=== PATIENT | female | born 1965 | race Caucasian/White ===

== ENCOUNTER 2019-09-14 06:42 | Day surgery (SDC) | payer BC ==
[2019-09-14] MEDS ORDERED: Dextrose 5%-Lactated Ringers 1,000 ML IV SCH (07:30)
[2019-09-14] MEDS ORDERED: Midazolam 1 MG/ML 2 ML SDV ONE (07:35)
[2019-09-14] MEDS ORDERED: Propofol 200 MG/20 ML SDV ONE (07:35)
[2019-09-14] MEDS ORDERED: fentaNYL 100 MCG/2 ML SDV ONE (07:35)
[2019-09-14] MEDS ORDERED: Glycopyrrolate 0.2 MG/ML 2 ML SDV IVPUSH ONE (08:00)
[2019-09-14] MEDS ORDERED: Pantoprazole 40 MG Vial IVPUSH ONE (08:40)
[2019-09-14 10:17] VITALS: BP 126/72; PULSE 62
--- NOTE | 2019-09-19 14:44 | OR ---
DATE OF PROCEDURE: 09/14/2019 SURGEON: Tirso Whitt MD PREOPERATIVE DIAGNOSIS: Dysphagia referable to the distal esophagus. POSTOPERATIVE DIAGNOSIS: Dysphagia referable to the distal esophagus with: 1. Small hiatal hernia without evidence of stricture. 2. [id number] gastroesophageal reflux disease. 3. Mild antral gastritis. ANESTHESIA: IV sedation. INDICATION FOR PROCEDURE: A 54-year-old female presenting with some dysphagia referable to the distal esophagus. This occurs somewhat intermittently. Plan is to proceed with upper GI endoscopy with biopsies and/or dilation as indicated. Potential risks including bleeding and perforation were discussed, and the patient wishes to proceed. DETAILS OF PROCEDURE: The patient was taken to the operating room and placed in a left lateral decubitus position. IV sedation was administered, after which the upper GI endoscope was passed orally through the length of the esophagus into the stomach with retroflexion view of the fundus and thereafter through the pyloric channel into the junction of the 3rd and 4th portions of the duodenum. Findings included normal hypopharynx, larynx, upper esophageal sphincter, and esophageal body. At the EG junction, a small hiatal hernia was present. This, however, was widely open, and there was at no point any suggestion of anything close to narrowing or stricturing of the esophagus or esophagogastric junction. At the EG junction, there was some mild-to- moderate reflux disease with the area being somewhat edematous. This might be contributing to some of the patient's sensation. There was no ulceration or plaquing otherwise suggestive of neoplastic changes. Within the remainder of the stomach, there were some patchy reddened areas in the antrum consistent with some antral gastritis. Pyloric channel and visualized portions of the duodenum were unremarkable. At this point, biopsies were obtained from the antrum and sent for CLOtest for H. pylori. Multiple biopsies were obtained from the esophagogastric junction and sent for histologic evaluation. Minimal bleeding from the biopsy sites was seen and the procedure then concluded. The patient will be initiated on Protonix 40 mg daily and she will be given IV Zosyn in recovery room to initiate treatment and will also be given a prescription for Levsin 0.125 mg sublingual q.6 hours p.r.n. for esophageal spasm-type symptoms. This would be a trial to see if this is helpful in the area. If this problem progresses and otherwise is not able to be treated adequately medically, one might consider an esophageal motility study. The patient will be following up with Dr. Saunders in [facility] in 2 weeks. Tirso Whitt MD /[id number]
== END 2019-09-14 09:50 | disposition home or self-care (01) ==
LOC: JP.SDS 06:42
PROVIDERS: ATTEND Surgery
DX: K44.9 Diaphragmatic hernia without obstruction or gangrene (principal); K21.9 Gastro-esophageal reflux disease without esophagitis; K29.70 Gastritis, unspecified, without bleeding; K22.70 Barrett's esophagus without dysplasia; E66.9 Obesity, unspecified; Z68.29 Body mass index [BMI] 29.0-29.9, adult
CPT/HCPCS: 43239; 87081; 88305; C9113; J2250; J2704; J3010; J3490; J7121

== ENCOUNTER 2021-09-21 05:21 | Day surgery (SDC) | payer BC ==
[2021-09-21 06:17] LABS: CORONAVIRUS COVID-19 NAA NEGATIVE (NEGATIVE)
[2021-09-21] MEDS ORDERED: Dextrose 5%-Lactated Ringers 1,000 ML IV SCH (06:30)
[2021-09-21] MEDS ORDERED: fentaNYL 100 MCG/2 ML SDV ONE (07:06)
[2021-09-21] MEDS ORDERED: Propofol 200 MG/20 ML SDV ONE (07:07)
[2021-09-21] MEDS ORDERED: Midazolam 1 MG/ML 2 ML SDV ONE (07:07)
[2021-09-21 08:30] VITALS: BP 130/71; PULSE 77
--- NOTE | 2021-09-22 21:31 | OR ---
DATE OF PROCEDURE: 09/21/2021 SURGEON: Tirso Whitt MD PREOPERATIVE DIAGNOSIS: History of Cortez esophagus. POSTOPERATIVE DIAGNOSES: 1. Small hiatal hernia with minimal inflammation at the esophagogastric junction and upward migration of the columnar mucosa consistent with history of Cortez esophagus. 2. Mild antral gastritis. OPERATIVE PROCEDURE: Upper gastrointestinal endoscopy with: 1. Biopsy of esophagogastric junction for histologic evaluation. 2. Biopsies of antrum for CLOtest. ANESTHESIA: IV sedation. INDICATION FOR PROCEDURE: A 56-year-old female with history of Cortez esophagus. She presently is on Protonix 40 mg daily and without adequate symptom control. The plan is to proceed with an upper GI endoscopy with biopsies of the area of likely Cortez esophagus. Potential risks of treatment including bleeding and perforation were discussed, and the patient wishes to proceed. DETAILS OF PROCEDURE: The patient was taken to the operating room, placed in a left lateral decubitus position. IV sedation was administered, after which the upper GI endoscope was passed orally through the length of esophagus into the stomach with retroflexion view of the fundus, and thereafter through the pyloric channel into the junction of the 3rd and 4th quadrants of the duodenum. Findings included normal hypopharynx, larynx, upper esophageal sphincter, and esophageal body. At the EG junction, there was a small hiatal hernia measuring around 1 cm. This was associated with minimal mucosal inflammation. There were 3 columns of columnar type mucosa extending up above the gastric folds consistent with history of Cortez esophagus. This at this point appeared to be totally uncomplicated. However, no stricturing, plaquing, or other signs of neoplastic change. Within the stomach, retroflexion noted a small hiatal hernia, otherwise there was some mild patchy redness in the antrum. The pyloric channel and proximal duodenum were unremarkable. At this point, biopsies were obtained from the antrum and sent for CLOtest for H pylori. Again, multiple biopsies were obtained from the area upward extending to columnar mucosa in the distal esophagus. No bleeding from the biopsy sites was seen and the procedure then concluded. The patient tolerated the procedure well. At this point, we will continue the present medical management, and assuming that there is no trend toward dysplasia on today's biopsies, the next upper endoscopy should be in roughly 2 years. Tirso Whitt MD /[id number]
== END 2021-09-21 08:42 | disposition home or self-care (01) ==
LOC: JP.SDS 05:21
PROVIDERS: ATTEND Surgery
DX: K29.60 Other gastritis without bleeding (principal); K44.9 Diaphragmatic hernia without obstruction or gangrene; K20.90 Esophagitis, unspecified without bleeding; E78.5 Hyperlipidemia, unspecified; Z86.73 Personal history of transient ischemic attack (TIA), and cerebral infarction without residual deficits; Z87.19 Personal history of other diseases of the digestive system; Z01.812 Encounter for preprocedural laboratory examination; Z20.822 Contact with and (suspected) exposure to COVID-19
CPT/HCPCS: 0241U; 43239; 87081; 88305; J2250; J2704; J3010; J7121

== ENCOUNTER 2023-09-23 07:36 | Day surgery (SDC) | payer BC ==
[2023-09-23] MEDS ORDERED: Sodium Chloride 0.9% 1,000 ML IV SCH (08:00)
[2023-09-23] MEDS ORDERED: Midazolam 1 MG/ML 2 ML SDV ONE (08:18)
[2023-09-23] MEDS ORDERED: Propofol 200 MG/20 ML SDV ONE (08:18)
[2023-09-23] MEDS ORDERED: fentaNYL 50 MCG/ML SDV ONE (08:19)
[2023-09-23 11:07] VITALS: BP 103/59; PULSE 43
== END 2023-09-23 11:10 | disposition home or self-care (01) ==
LOC: JP.SDS 07:36
PROVIDERS: ATTEND Surgery
DX: Z12.11 Encounter for screening for malignant neoplasm of colon (principal)
CPT/HCPCS: 45378; J2250; J2704; J3010; J7030